=== PATIENT | female | born 1975 | race Caucasian/White ===

== ENCOUNTER → 2017-03-18 | Outpatient (CLI) | payer OTHER ==
[2017-03-18 13:08] LABS: HEMATOCRIT 37.9 % (37-47); MEAN CORPUSCULAR HEMOGLOBIN 31.3 pg (25-34); MEAN CORPUSCULAR HGB CONC 33.2 g/dl (32-36); MEAN PLATELET VOLUME 9.6 fL (7.4-10.4); PLATELET COUNT 198 K/uL (130-400); RED BLOOD COUNT 4.03 M/uL (4.2-5.4); WHITE BLOOD COUNT 8.17 K/uL (4.8-10.8)
[2017-03-18 13:19] LABS: URINE APPEARANCE CLEAR (CLEAR); URINE BILIRUBIN NEG (NEG); URINE COLOR YELLOW; URINE EPITHELIAL CELL AUTO >30 /lpf (0-5); URINE NITRITE NEG (NEG); URINE SPECIFIC GRAVITY 1.007 (1.000-1.030); UROBILINOGEN NEG (NEG)
[2017-03-18 13:20] LABS: MANUAL MICROSCOPIC REQUIRED? NO; REVIEW REQ? YES
[2017-03-18 13:45] LABS: URINE PROTIEN/CREAT RATIO 0.1 (0-0.2); URINE TOTAL PROTEIN 6.6 mg/dl (0-11.9)
[2017-03-18 13:48] LABS: BLOOD UREA NITROGEN 9 mg/dl (7-18); BUN/CREATININE RATIO 4.5 (10-20); CALCIUM 9.4 mg/dl (8.5-10.1); CARBON DIOXIDE 26 mmol/L (21-32); CHLORIDE 104 mmol/L (98-107); GLUCOSE 96 mg/dl (70-99); POTASSIUM 3.7 mmol/L (3.5-5.1); SODIUM 138 mmol/L (136-145)
[2017-03-18 13:49] LABS: PHOSPHORUS 3.4 mg/dl (2.5-4.9)
== END | disposition home or self-care (01) ==
LOC: C.LAB1850 12:14
PROVIDERS: ATTEND Internal Medicine Nephrology
DX: N18.3 Chronic kidney disease, stage 3 (moderate) (principal)

== ENCOUNTER → 2017-03-31 | Outpatient (CLI) | payer OTHER ==
[2017-03-31 11:14] LABS: ESTIMATED AVERAGE GLUCOSE 117 mg/dl; HA1C FLAG Normal (Normal)
[2017-03-31 12:12] LABS: CHOLESTEROL/HDL RATIO 10.1
== END | disposition home or self-care (01) ==
LOC: C.LAB1850 10:11
PROVIDERS: ATTEND Physician Assistant
DX: E11.9 Type 2 diabetes mellitus without complications (principal); E03.9 Hypothyroidism, unspecified; E78.5 Hyperlipidemia, unspecified

== ENCOUNTER 2023-08-05 23:12 | Observation (INO) ==
[2023-08-05] MEDS ORDERED: NICOTINE 14 MG/24 HR PATCH TD STA (23:22)
--- NOTE | 2023-08-05 23:22 | Emergency Department Note ---
History of Present Illness General Chief complaint: Overdose (Intentional) Stated complaint: OVERDOSE Time Seen by Provider: 08/05/23 23:15 History of Present Illness This 48-year-old female took 9 tablets of her Klonopin 0.5 mg as she went to go to sleep. Apparently she states her boyfriend took her trazodone. Patient states she was not trying to hurt herself. Patient denies chest pain, dyspnea, abdominal pain, drug use or alcohol use. She does smoke. No suicide or homicide ideations. No delusions. No hallucinations. She has been hospitalized in the past for behavior health concerns. She has a therapist and her family doctor prescribes her behavioral medications. No other concerns per patient. Home Medications Medication Instructions Recorded Confirmed Type acetaminophen [Tylenol] PO 07/27/22 07/27/22 History atorvastatin PO 07/27/22 07/27/22 History brexpiprazole [Rexulti] PO 07/27/22 07/27/22 History buspirone PO 07/27/22 07/27/22 History clonazepam PO 07/27/22 07/27/22 History duloxetine [Cymbalta] PO 07/27/22 07/27/22 History esomeprazole magnesium [Nexium] PO 07/27/22 07/27/22 History famotidine [Pepcid] PO 07/27/22 07/27/22 History fenofibrate PO 07/27/22 07/27/22 History fluticasone propion-salmeterol inhalation 07/27/22 07/27/22 History [Advair Diskus] gabapentin PO 07/27/22 07/27/22 History hydrocodone-acetaminophen PO 07/27/22 07/27/22 History ibuprofen PO 07/27/22 07/27/22 History insulin aspart U-100 [Novolog subcut 07/27/22 07/27/22 History U-100 Insulin aspart] insulin glargine [Lantus Solostar subcut 07/27/22 07/27/22 History U-100 Insulin] insulin glargine [Lantus U-100 subcut 07/27/22 07/27/22 History Insulin] levothyroxine PO 07/27/22 07/27/22 History mecobalamin (vitamin B12) [B12 PO 07/27/22 07/27/22 History Active] metformin PO 07/27/22 07/27/22 History montelukast [Singulair] PO 07/27/22 07/27/22 History ondansetron HCl [Zofran] PO 07/27/22 07/27/22 History polyethylene glycol 3350 [Miralax] PO 07/27/22 07/27/22 History semaglutide [Ozempic] subcut 07/27/22 07/27/22 History trazodone PO 07/27/22 07/27/22 History vibegron 75 mg tablet (Gemtesa) 75 mg PO DAILY #90 tabs 01/19/23 Rx diaper,brief,adult,disposable #72 ea 04/18/23 04/18/23 Rx (Breezers Adult Brief) Allergies Allergy/AdvReac Type Severity Reaction Status Date / Time niacin AdvReac Severe FACE Verified 08/05/23 23:45 [From Niaspan FLUSHES Extended-Release] AND "HOT" FEELING Past Med/Surg History Medical History Ectopic Kidney stone Surgical History H/O tubal ligation History of hysterectomy Family History Mother Diabetes Grandmother (Maternal) Breast cancer Myocardial infarction Denies family history of Ovarian cancer Prostate cancer Colorectal cancer Social History Smoking Status: Current every day smoker Tobacco Type: Cigarettes packs per day: 1.5; Hx Alcohol Use: No Preferred Language: Romansh marital status: / Feels Safe at Home: Yes Review of Systems A total of 10 systems reviewed and were otherwise negative Physical Exam Vital Signs Vital Signs - 24 hr 08/05/23 23:19 08/05/23 23:36 08/05/23 23:36 Temperature 36.6 C Temperature Source Oral Pulse Rate 75 Pulse Rate [Finger] 69 Respiratory Rate 16 20 Respiratory Effort / Characteristics Non-Labored Spontaneous Respiratory Depth Normal Blood Pressure 114/75 Blood Pressure [Right Arm] 114/75 Blood Pressure Mean 88 Blood Pressure Mean [Right Arm] 88 Blood Pressure Position [Right Arm] Sitting Pulse Oximetry 91 93 88 L Oxygen Delivery Method Room Air Nasal Cannula Room Air Nasal Cannula Oxygen Flow Rate 2 0 Sepsis Recent Fever Within 48 Hours No Sepsis New/Unexplained Change in Mental Status No Sepsis Action Taken by Nursing No Action Required Oxygen Flow Rate - Titration 2 Pulse Oximetry Post Tiitration 93 VITALS: Vitals are noted on the nurse's note and reviewed by myself. Vital signs stable. GENERAL: White female cooperative responding to questions easily and following commands, in no acute distress, nondiaphoretic, well-developed well-nourished. SKIN: Capillary reflex less than 2 seconds. HEENT: Normocephalic. PERRLA. EOMI. Nares patent. Mucous membranes moist. Neck is supple without nuchal rigidity. HEART: Regular rate and rhythm LUNGS: Clear to auscultation bilaterally without wheezes, rales or rhonchi. No retractions or accessory muscle use. ABDOMEN: Positive bowel sounds x 4. Normal tympanic percussion. Soft, nontender, without masses or organomegaly. Milton sign negative. No guarding or rebound tenderness. MUSCULOSKELETAL: No gross musculoskeletal defects. NEURO: Patient was alert and oriented to person place and time. Normal sensation to light and sharp touch. No focal neurological deficits. Course Administered Medications Magnesium Sulfate/Dextrose (Magnesium Sulfate / D5w) 1 gm in 100 mls @ 100 mls/hr IV Q1H CANDICE Stop: 08/06/23 02:10 Last Admin: 08/06/23 00:24 Dose: 100 mls/hr Documented By: MARI Discontinued Medications Sodium Chloride (Nss) 1,000 mls @ 999 mls/hr IV .Q1H1M CANDICE Stop: 08/06/23 00:30 Last Admin: 08/05/23 23:51 Dose: 999 mls/hr Documented By: FREDDY Nicotine (Nicotine 14 Mg/24 Hr Patch) 14 mg TD NOW STA Stop: 08/05/23 23:23 Last Admin: 08/06/23 00:25 Dose: 14 mg Documented By: MARI Potassium Chloride (Potassium Chloride 20 Meq/15 Ml Udc) 40 meq PO NOW STA Stop: 08/06/23 00:12 Last Admin: 08/06/23 00:23 Dose: 40 meq Documented By: MARI Critical Care Time Critical Care Time: Yes Total Critical Care Time: 35 I have personally spent 35 minutes of critical care time in the direct management of this patient. This includes bedside care, interpretation of diagnostic studies, and testing, discussion with consultants, patient, and family members, and other required patient management activities. This 35 minutes is in excess of all separately billable procedures. Medical Decision Making Medical Records Attestation: I reviewed the patient's medical records. Home Medications Current Medication List: was personally reviewed by me Laboratory Data Attestation: I reviewed the patient's lab results. 08/05/23 23:20 08/05/23 23:20 Lab Results 08/05/23 Range/Units 23:20 WBC 9.61 (4.8-10.8) K/ul RBC 4.37 (4.20-5.40) M/uL Hgb 13.3 (12.0-16.0) g/dl Hct 39.4 (37.0-47.0) % MCV 90.2 (80.0-100.0) fL MCH 30.4 (25.0-34.0) pg MCHC 33.8 (32.0-36.0) g/dL RDW Std Deviation 47.9 H (36.4-46.3) fL RDW Coeff of [place] 14.4 (11.5-14.5) % Plt Count 266 (130-400) K/uL MPV 10.1 (9.4-12.4) fL Immature Gran % (Auto) 0.4 % Neut % (Auto) 47.6 % Lymph % (Auto) 42.5 % Leslie % (Auto) 7.6 % Eos % (Auto) 0.9 % Baso % (Auto) 1.0 % Neut # (Auto) 4.57 (1.40-6.50) K/uL Lymph # (Auto) 4.08 H (1.20-3.40) K/uL Leslie # (Auto) 0.73 H (0.11-0.59) K/uL Eos # (Auto) 0.09 (0.00-0.50) K/uL Baso # (Auto) 0.10 (0.00-0.20) K/uL Immature Gran # (Auto) 0.04 (0.01-0.20) K/uL PT 10.7 (9.0-12.0) Seconds INR 1.0 (0.9-1.1) Sodium 139 (136-145) mmol/L Potassium 3.4 L (3.5-5.1) mmol/L Chloride 106 (98-107) mmol/L Carbon Dioxide 25 (21-32) mmol/L Anion Gap 8 (3-11) BUN 22 (6-23) mg/dl Creatinine 1.16 (0.6-1.2) mg/dl Est Cr Clr Drug Dosing 66.8 ml/min Est GFR ( Amer) 64.5 ml/min Est GFR (Non-Af Amer) 55.6 ml/min BUN/Creatinine Ratio 19.0 (10-20) Glucose 152 H (70-99(Fasting)) mg/dl Calcium 9.5 (8.6-10.3) mg/dl Magnesium 1.3 L (1.7-2.4) mg/dl Total Bilirubin 0.5 (0.2-1.0) mg/dl AST 14 (13-39) U/L ALT 19 (7-52) U/L Alkaline Phosphatase 50 (34-104) U/L Total Creatine Kinase 52 (26-192) U/L Troponin I High Sens 2.9 (0-14) pg/ml Total Protein 6.7 (6.0-8.3) gm/dl Albumin 4.4 (3.4-5.0) gm/dl Globulin 2.3 L (2.5-4.0) gm/dl Albumin/Globulin Ratio 1.9 (0.9-2) TSH 3.240 (0.300-4.500) uIu/ml HCG, Qual Negative (Negative) Salicylates < 3.0 L (3.0-30) mg/dl Acetaminophen < 3 L (10-30) ug/ml Ethyl Alcohol mg/dL < 10.0 (<10.0) mg/dl SARS-CoV-2 (PCR) NEGATIVE (Negative) Influenza Type A (PCR) Negative (Neg) Influenza Type B (PCR) Negative (Neg) RSV (RT-PCR) Negative (Neg) Imaging Data Attestation: I personally reviewed and interpreted this imaging study as follows: MDM Narrative Prior records/ancillary studies reviewed. Triage Nursing notes reviewed. Additional history obtained from EMS. The patient's history was concerning for altered mental status and probable overdose. Differential diagnosis: Etiologies such as toxicologic, infection, hypoglycemia, electrolyte abnormalities, cardiac sources, intracerebral event, neurologic, as well as others were entertained. Physical examination: The patient had normal sensorium. No trauma noted. ER treatment provided: IV NSS 1 L bolus magnesium and potassium ordered for replacement An order was placed for continuous cardiac monitoring. The monitor shows a rate of 60-100 with a sinus rhythm per my interpretation. On reassessment the patient was stable and improving. Diagnostic interpretation by me: ECG: ordered for overdose The electrocardiogram was negative for pathologic change. There was no QRS widening or interval prolongation. EKG: Normal sinus, normal intervals, poor baseline, no QRS widening, no acute ST-T wave changes. Rate 74. Impression normal sinus rhythm poor baseline independently interpreted by myself The labs Independently Interpreted by myself revealed no worrisome leukocytosis, low magnesium. Negative alcohol Hypokalemia and this was replaced orally Imaging studies: Chest x-ray with no acute consolidation, pneumothorax or free air per my independent interpretation Consultation: A consultation was placed with Poison Control. The recommendations were for Observation for at least 6 hours and patient to be symptomatic for up to 39 hours A consultation was placed with the Patient be admitted to the medical service. Hospitalist. The case was discussed and diagnostics were reviewed. The patient was evaluated in the ER for further treatment. Apparently the patient had a 302 placed On her by crisis. Patient was not forthcoming about this. Suicide precautions were implemented. Patient be medically admitted and then once cleared will be evaluated by behavioral health. This appears to be consistent with an overdose with electrolyte abnormalities. Poison control was consulted and recommends observation. Medicine was consulted and the case discussed and once the patient is medically cleared will be evaluated by behavioral health. Suicide precautions were implemented. No worrisome leukocytosis. Normal EKG. Stable labs. Patient is agreeable treatment plan of admission. By the evaluation outlined above emergent etiologies such as infection, hypoglycemia, cardiac sources, intracerebral event, neurologic,as well as others were deemed relatively unlikely. The pt informed about the findings as listed above. All questions were answered and pleased with the treatment. The chart was completed utilizing [employer] voice recognition software. Grammatical errors, random word insertions, pronoun errors, and incomplete sentences are an occassional consequence of this system due to software limitations, ambient noise, and hardware issues. Any formal questions or concerns about the content, text, or information contained within the body of this dictation should be directly addressed to the physician retail store assistant for clarification. Impression & Plan Accidental overdose, Hypomagnesemia, Hypokalemia Discharge Plan Visit Data Chief Complaint: Overdose (Intentional) Stated Complaint: OVERDOSE ED Provider: Keyonna Bobby ED Midlevel Provider: Tiffani Conteh Discharge Problem: Accidental overdose, Hypomagnesemia, Hypokalemia Patient Disposition: Admitted As Inpatient Condition: Good Forms Stand Alone Forms: My [facility], Suicide Prevention Resources Prescriptions Prescriptions: No Action Gemtesa 75 mg tablet 75 mg PO DAILY Qty: 90 1RF (DME) Breezers Adult Brief Misc See Rx Instructions .Route Qty: 72 0RF Rx Instructions: As directed insulin glargine [Lantus U-100 Insulin] subcut duloxetine [Cymbalta] PO fenofibrate PO metformin PO esomeprazole magnesium [Nexium] PO levothyroxine PO mecobalamin (vitamin B12) [B12 Active] PO trazodone PO famotidine [Pepcid] PO buspirone PO atorvastatin PO gabapentin PO montelukast [Singulair] PO brexpiprazole [Rexulti] PO clonazepam PO ondansetron HCl [Zofran] PO ibuprofen PO hydrocodone-acetaminophen PO fluticasone propion-salmeterol [Advair Diskus] inhalation semaglutide [Ozempic] subcut polyethylene glycol 3350 [Miralax] PO acetaminophen [Tylenol] PO insulin glargine [Lantus Solostar U-100 Insulin] subcut insulin aspart U-100 [Novolog U-100 Insulin aspart] subcut Referrals Referrals: Martin Daly M.D. [Primary Care Provider] - Discharge Problem: Accidental overdose Qualifiers: Encounter type: initial encounter Qualified Code(s): T50.901A - Poisoning by unspecified drugs, medicaments and biological substances, accidental (unintentional), initial encounter
[2023-08-05] MEDS ORDERED: SODIUM CHLORIDE 0.9% 1,000 ML IV SCH (23:30)
[2023-08-05 23:55] LABS: Eosinophils # (auto) 0.09 K/uL (0.00-0.50); Eosinophils % (auto) 0.9 %; Hematocrit (blood only) 39.4 % (37.0-47.0); Hemoglobin 13.3 g/dl (12.0-16.0); Immature Granulocytes # (auto) 0.04 K/uL (0.01-0.20); Immature Granulocytes % (auto) 0.4 %; Lymphocytes # (auto) 4.08 K/uL (1.20-3.40); Lymphocytes % (auto) 42.5 %; Mean Corpuscular Hemoglobin 30.4 pg (25.0-34.0); Mean Corpuscular Hgb Conc 33.8 g/dL (32.0-36.0); Mean Corpuscular Volume 90.2 fL (80.0-100.0); Mean Platelet Volume 10.1 fL (9.4-12.4); Monocytes # (auto) 0.73 K/uL (0.11-0.59); Monocytes % (auto) 7.6 %; Neutrophils # (auto) 4.57 K/uL (1.40-6.50); Neutrophils % (auto) 47.6 %; Platelet Count 266 K/uL (130-400); RDW Coefficient of Variation 14.4 % (11.5-14.5); RDW Standard Deviation 47.9 fL (36.4-46.3); Red Blood Count 4.37 M/uL (4.20-5.40); White Blood Count 9.61 K/ul (4.8-10.8)
[2023-08-06 00:07] LABS: Albumin Globulin Ratio 1.9 (0.9-2); Albumin Level 4.4 gm/dl (3.4-5.0); Bilirubin,Total 0.5 mg/dl (0.2-1.0); Calcium 9.5 mg/dl (8.6-10.3); Creatinine Clr Calc Pharmacy 66.8 ml/min; Est GFR (African American) 64.5 ml/min; Est GFR (Non-African American) 55.6 ml/min; Globulin 2.3 gm/dl (2.5-4.0); Magnesium 1.3 mg/dl (1.7-2.4); Potassium 3.4 mmol/L (3.5-5.1); Total Protein 6.7 gm/dl (6.0-8.3)
[2023-08-06 00:10] LABS: Pregnancy Test, Serum Negative (Negative)
[2023-08-06] MEDS ORDERED: POTASSIUM CHLORIDE 20 MEQ/15 ML UDC PO STA (00:11)
[2023-08-06 00:14] LABS: Acetaminophen < 3 ug/ml (10-30); Salicylate < 3.0 mg/dl (3.0-30); Troponin I High Sensitivity 2.9 pg/ml (0-14)
[2023-08-06 00:19] LABS: Prothrombin Time 10.7 Seconds (9.0-12.0)
[2023-08-06 00:24] LABS: Thyroid Stimulating Hormone 3.24 uIu/ml (0.300-4.500)
[2023-08-06] MEDS: MAGNESIUM SULFATE / D5W 1 GM/100 ML BAG IV SCH ×2 (00:24→01:11)
[2023-08-06 00:28] LABS: Influenza A virus by PCR Negative (Neg); Influenza B virus by PCR Negative (Neg); RSV by PCR Negative (Neg); SARS CoV2 RNA(COVID-19) Ceph NEGATIVE (Negative)
[2023-08-06] MEDS ORDERED: LACTATED RINGER'S 500 ML IV ONE (00:56)
--- NOTE | 2023-08-06 01:17 | Emergency Department Note ---
ED Visit Note I was consulted by the Advanced Practice Provider. I saw the patient personally and performed a substantive portion of the visit. This includes aspects of the HPI, MDM, diagnostic interpretations, and disposition/plan. .
[2023-08-06 01:49] LABS: Appearance Urine Clear (Clear); Bacteria Urine Automated 3+ (Negative); Bilirubin Urine Negative (Negative); Blood Urine Trace (Negative); Color Urine Yellow; Epithelial Cell Urine Auto 0-5 /lpf (0-5); Glucose Urine UA Negative (Negative); Ketones Urine Negative (Negative); Leukocyte Esterase Urine 3+ (Negative); Nitrite Urine Positive (Negative); Protein Urine Negative (Negative); RBC Urine Automated 0-4 /hpf (0-4); Specific Gravity Urine 1.007 (1.000-1.030); Urobilinogen Urine Negative (Negative); WBC Urine Automated >30 /hpf (0-5)
--- NOTE | 2023-08-06 01:58 | History & Physical Report ---
Date of Service August 06, 2023 Assessment & Plan (1) Accidental overdose: Plan: Patient is a 48-year-old female with past medical history of diabetes, nocturnal enuresis, and insomnia who presents to the hospital for concern of overdose. -Admit to telemetry, telemetry indication being overdose with susceptibility to arrhythmia -No indication for flumazenil at this time -Placed on telemetry and give supportive care with IV fluids and continue to monitor -EKG in the morning. Serial labs -Unfortunately, patient unable to confirm or deny any of the medications that she is on, some of which could induce withdrawal if not taken appropriately including duloxetine, buspirone, and hydrocodone -Home medications on hold until can be confirmed that the patient is taking them (2) Hypomagnesemia: Plan: - Magnesium 1.3 on admission, x2 bags of IV, recheck in AM (3) Hypokalemia: Plan: - Potassium of 3.4 on admission, supplement as needed (4) Diabetes: Plan: - Patient appears to be on metformin, Ozempic, and insulin in the outpatient setting. Unable to confirm -Placed on basal bolus insulin with sliding scale based on weight (5) High cholesterol: Plan: - Continue statin when medication is able to be confirmed Plan Disposition: Admit to telemetry for monitoring up for overdose Diet: DM 2 DVT prophylaxis: Heparin CODE STATUS: Assumed full code given lethargy and overdose History of Present Illness Chief Complaint: Overdose Primary Care Provider: Martin Daly Patient is a 48-year-old female with past medical history of diabetes, nocturnal enuresis, and insomnia who presents to the hospital for concern of overdose. Patient is quite lethargic at the time of my interview and very little meaningful HPI was gathered at that time. HPI is received almost entirely from ED EMILY. It seems patient took 9 tablets of 0.5 mg Klonopin to help induce sleep. It seems her boyfriend had taken her trazodone for some reason, so she used Klonopin to help induce sleep. Unable to gather any other meaningful HPI at this time. ED course: Patient evaluated by provider. Labs are significant for mildly low potassium at 3.4, magnesium 1.3, and urinalysis significant for urine bacteria, white blood cells, and leukocyte esterase/nitrites. Poison control was contacted and recommended observation for the next "6-39 hours". Hospital service was consulted for admission and observation during overdose. Allergies Allergy/AdvReac Type Severity Reaction Status Date / Time niacin AdvReac Severe FACE Verified 08/05/23 23:45 [From Niaspan FLUSHES Extended-Release] AND "HOT" FEELING Home Medications Medication Instructions Recorded Confirmed Type acetaminophen [Tylenol] PO 07/27/22 07/27/22 History atorvastatin PO 07/27/22 07/27/22 History brexpiprazole [Rexulti] PO 07/27/22 07/27/22 History buspirone PO 07/27/22 07/27/22 History clonazepam PO 07/27/22 07/27/22 History duloxetine [Cymbalta] PO 07/27/22 07/27/22 History esomeprazole magnesium [Nexium] PO 07/27/22 07/27/22 History famotidine [Pepcid] PO 07/27/22 07/27/22 History fenofibrate PO 07/27/22 07/27/22 History fluticasone propion-salmeterol inhalation 07/27/22 07/27/22 History [Advair Diskus] gabapentin PO 07/27/22 07/27/22 History hydrocodone-acetaminophen PO 07/27/22 07/27/22 History ibuprofen PO 07/27/22 07/27/22 History insulin aspart U-100 [Novolog subcut 07/27/22 07/27/22 History U-100 Insulin aspart] insulin glargine [Lantus Solostar subcut 07/27/22 07/27/22 History U-100 Insulin] insulin glargine [Lantus U-100 subcut 07/27/22 07/27/22 History Insulin] levothyroxine PO 07/27/22 07/27/22 History mecobalamin (vitamin B12) [B12 PO 07/27/22 07/27/22 History Active] metformin PO 07/27/22 07/27/22 History montelukast [Singulair] PO 07/27/22 07/27/22 History ondansetron HCl [Zofran] PO 07/27/22 07/27/22 History polyethylene glycol 3350 [Miralax] PO 07/27/22 07/27/22 History semaglutide [Ozempic] subcut 07/27/22 07/27/22 History trazodone PO 07/27/22 07/27/22 History vibegron 75 mg tablet (Gemtesa) 75 mg PO DAILY #90 tabs 01/19/23 Rx diaper,brief,adult,disposable #72 ea 04/18/23 04/18/23 Rx (Breezers Adult Brief) Past Med/Surg History Medical History Ectopic Kidney stone Surgical History H/O tubal ligation History of hysterectomy Family History Mother Diabetes Grandmother (Maternal) Breast cancer Myocardial infarction Denies family history of Ovarian cancer Prostate cancer Colorectal cancer Social History Smoking Status: Current every day smoker Tobacco Type: Cigarettes packs per day: 1.5; Hx Alcohol Use: No Hx Substance Use: Yes Preferred Language: Nepali Oracle Architect Required: No Beliefs That Will Affect Care: None marital status: / Current Living Situation: Alone Current Living Situation Comment: Son is at basic training for Feels Safe at Home: Yes Assistive Devices: Glasses Review of Systems Review of Systems: Unobtainable due to reduced consciousness Physical Exam Constitutional: well developed, well nourished and + lethargic Eyes: + anicteric sclerae Neck: normal visual inspection Respiratory: normal respiratory effort, lungs clear to auscultation Cardiovascular: RRR, no murmur, no edema Gastrointestinal (Abdomen): normal bowel sounds, soft, nontender, no hepatosplenomegaly Musculoskeletal: Head/Neck/Chest: normocephalic and head atraumatic Skin: no rashes, warm and dry Neurologic: moves all extremities Results & Data Results & Data Vital Signs (Past 12 Hours) Vital Signs Temp Pulse Pulse Resp BP BP Pulse Ox 08/06/23 01:41 70 19 92 08/06/23 01:41 116/65 08/06/23 01:30 80/56 L 08/06/23 01:30 68 19 94 08/06/23 01:27 68 14 94 08/06/23 01:27 79/48 L 08/06/23 01:15 66 14 94 08/06/23 01:15 85/48 L 08/06/23 01:14 81/52 L 08/06/23 01:13 81/52 L 08/06/23 01:13 66 15 94 08/06/23 01:04 64 13 95 08/06/23 01:04 88/56 L 08/06/23 01:04 88/56 L 08/06/23 01:00 80/55 L 08/06/23 01:00 64 13 95 08/06/23 01:00 80/55 L 08/06/23 00:53 64 14 94 08/06/23 00:53 90/53 L 08/06/23 00:53 90/53 L 08/06/23 00:47 66 14 96 08/06/23 00:47 91/60 L 08/06/23 00:46 71 12 96 08/06/23 00:45 80/52 L 08/06/23 00:45 63 15 08/06/23 00:30 62 19 97 08/06/23 00:28 65 14 98 08/06/23 00:00 68 14 94 08/05/23 23:45 69 14 92 08/05/23 23:36 88 L 08/05/23 23:36 69 20 114/75 93 08/05/23 23:30 72 14 90 08/05/23 23:21 89 L 08/05/23 23:20 72 08/05/23 23:19 36.6 C 75 16 114/75 91 O2 Del Method O2 Flow Rate 08/06/23 01:41 08/06/23 01:41 08/06/23 01:30 08/06/23 01:30 08/06/23 01:27 08/06/23 01:27 08/06/23 01:15 08/06/23 01:15 08/06/23 01:14 08/06/23 01:13 08/06/23 01:13 08/06/23 01:04 08/06/23 01:04 08/06/23 01:04 08/06/23 01:00 08/06/23 01:00 08/06/23 01:00 08/06/23 00:53 08/06/23 00:53 08/06/23 00:53 08/06/23 00:47 08/06/23 00:47 08/06/23 00:46 08/06/23 00:45 08/06/23 00:45 08/06/23 00:30 08/06/23 00:28 08/06/23 00:00 08/05/23 23:45 08/05/23 23:36 Room Air, Nasal Cannula 0 08/05/23 23:36 Nasal Cannula 2 08/05/23 23:30 08/05/23 23:21 08/05/23 23:20 08/05/23 23:19 Room Air Supervising Physician Co-Signing Physician Notes Attending addendum: I have physically seen this patient, have supervised the medical residents activities, and agree with the H&P unless as otherwise noted. Assessment and Plan: Accidental clonazepam overdose- The patient will be admitted to telemetry for serial cardiac enzymes, serial EKG's, cardiac rhythm monitoring IV fluids as noted History and physical and HPI limited due to patient's lethargic state and decreased responsiveness One-on-one observation Consult psychiatry Hypomagnesemia- Magnesium 1.3 on admission Ordered for 2 g magnesium sulfate IV from the ED, recheck laboratories in a.m. Hypokalemia- Potassium 3.4 on admission, replace as noted, recheck laboratories in a.m. Diabetes mellitus- Holding metformin, Ozempic Placed on basal bolus insulin with sliding scale as noted and check hemoglobin A1c in a.m. Remaining orders and notations as noted (1) Accidental overdose Encounter type: initial encounter Qualified Code(s): T50.901A - Poisoning by unspecified drugs, medicaments and biological substances, accidental (unintentional), initial encounter
[2023-08-06 02:05] LABS: Amphetamines+Metham, Urine Neg (Neg); Barbiturates, Urine Neg (Neg); Benzodiazepine, Urine Neg (Neg); Cocaine, Urine Neg (Neg); MDMA (Ecstacy), Urine Neg (Neg); Marijuana, Urine Neg (Neg); Methadone, Urine Neg (Neg); Opiate, Urine Neg (Neg); Phencyclidine, Urine Neg (Neg)
[2023-08-06] MEDS ORDERED: GLUCAGON FOR INJ 1 MG VIAL SQ PRN (02:11)
[2023-08-06] MEDS ORDERED: GLUCOSE 10 TAB/TUBE PO PRN (02:11)
[2023-08-06] MEDS ORDERED: LACTATED RINGER'S 1,000 ML IV SCH (02:11)
[2023-08-06] MEDS ORDERED: CARBOHYDRATES FOR HYPOGLYCEMIA PO PRN (02:11)
[2023-08-06] MEDS ORDERED: DEXTROSE 50% 50 ML SYRINGE IV PRN (02:11)
[2023-08-06] MEDS ORDERED: GLUCOSE 40% GEL 15 GM TUBE PO PRN (02:11)
[2023-08-06 07:10] LABS: Hematocrit (blood only) 36.3 % (37.0-47.0); Hemoglobin 12.1 g/dl (12.0-16.0); Mean Corpuscular Hemoglobin 30.3 pg (25.0-34.0); Mean Corpuscular Hgb Conc 33.3 g/dL (32.0-36.0); Mean Corpuscular Volume 90.8 fL (80.0-100.0); Platelet Count 242 K/uL (130-400); RDW Coefficient of Variation 14.6 % (11.5-14.5); RDW Standard Deviation 48.4 fL (36.4-46.3)
[2023-08-06 07:25] LABS: Albumin Globulin Ratio 2.1 (0.9-2); Albumin Level 3.9 gm/dl (3.4-5.0); BUN Creatinine Ratio 19.2 (10-20); Bilirubin,Total 0.5 mg/dl (0.2-1.0); Calcium 8.7 mg/dl (8.6-10.3); Creatinine Clr Calc Pharmacy 78.1 ml/min; Est GFR (African American) 78.1 ml/min; Est GFR (Non-African American) 67.4 ml/min; Globulin 1.9 gm/dl (2.5-4.0); Potassium 4.2 mmol/L (3.5-5.1); Total Protein 5.8 gm/dl (6.0-8.3)
--- NOTE | 2023-08-06 07:52 | XRay Report ---
XR chest 1V portable HISTORY: Overdose. COMPARISON: None. FINDINGS: The cardiac silhouette is mildly enlarged. A few bibasilar linear densities favor subsegmen manju atelectasis. No focal lung consolidations to suggest a pneumonia. No evidence for pulmonary edema . No acute fractures identified. No pleural effusions. No pneumothorax. IMPRESSION: Mild cardiomegaly. Otherwise, no acute process within the chest. ACT 112: Negative or not required by law. Electronically signed by: Sonu Lemons M.D. 08/06/2023 7:51 AM
--- NOTE | 2023-08-06 08:19 | Electrocardiogram Report ---
Test Reason : Blood Pressure : / mmHG Vent. Rate : 074 BPM Atrial Rate : 074 BPM P-R Int : 182 ms QRS Dur : 076 ms QT Int : 422 ms P-R-T Axes : 033 -13 -12 degrees QTc Int : 468 ms Normal sinus rhythm Diffuse Minor Nonspecific T wave abnormality Abnormal ECG No previous ECGs available Confirmed by Caleb Washington ([id number]) on 08/06/2023 8:19:04 AM Referred By: REFERRED SELF Confirmed By:Caleb Washington
[2023-08-06 08:21] LABS: Estimated Average Glucose 151 mg/dl; Hemoglobin A1C 6.9 % (4.5-5.6)
[2023-08-06] MEDS ORDERED: cefTRIAXone SODIUM 2,000 MG in DEXTROSE 5 % MINI-B 50 ML IV SCH (08:30)
[2023-08-06] MEDS ORDERED: SODIUM CHLORIDE 0.9% 500 ML IV SCH (08:30)
[2023-08-06] MEDS: INSULIN ASPART PER UNIT CHARGE SC SCH ×2 (08:53→13:08)
[2023-08-06] MEDS ORDERED: NICOTINE 14 MG/24 HR PATCH TD SCH (09:00)
[2023-08-06] MEDS ORDERED: LANTUS PER UNIT CHARGE SQ SCH (09:00)
[2023-08-06] MEDS ORDERED: HEPARIN SOD 5,000 UNIT/0.5 ML VIAL SQ SCH (09:00)
--- NOTE | 2023-08-06 12:35 | Psychiatric Consultation ---
Date of Consultation August 06, 2023 Impression / Recommendations Impression 48 y/o F with a history of depressive and anxiety symptoms (but whose assigned diagnoses are currently unclear) who took 9 0.5 mg clonazepam to get to sleep because she had been keeping her trazodone at her boyfriend's apartment and he wouldn't let her in to get in following an argument. She has consistently denied any suicidal intent, saying she was just trying to get to sleep. Pt says she is prescribed 0.5 mg QID and that her prescriber told her that this will be replaced with 1 mg twice a day (which certainly makes more sense). Pt does not think of 4.5 mg clonazepam as a dangerously high dose and, objectively, it shouldn't be; the 3 mg tablet is almost always used twice a day (totaling 33% more than she took), and some patients are prescribed 4.5 mg or more twice a day (albeit not very commonly). As already noted, pt is taking duloxetine and gabapentin, and stopping those abruptly could be problematic. I've never seen problems attributable to abrupt cessation of buspirone (and most patients who take it simply stop it) or brexpiprazole. In my opinion, pt does not meet criteria for involuntary emergency psychiatric admission and can safely be discharged home for outpatient follow-up with her current team. Overall I spent a total of 98 minutes on the floor for this consultation assessment including review of chart records, review of test results, direct evaluation of the patient [id number], counseling the patient, medication education with the patient, risk assessment, discussion with the psychiatric liaison nurse and with the hospitalist, and documentation in the electronic he alth record. (1) Anxiety and depression: (2) Accidental overdose: Encounter type: initial encounter Qualified Code(s): T50.901A - Poisoning by unspecified drugs, medicaments and biological substances, accidental (unintentional), initial encounter Plan The patients 302 warrant has been dispositioned as on exam, the patient is not in need of emergency treatment because she is not currently suicidal nor was she suicidal at the time of the medication overingestion. She does not longer require 1-on-1 for psychiatric hold; the treating hospitalist was notified to make a determination of ongoing need for an aide for safety. * I recommend no change in the patient's prescribed outpatient psychiatric medication regimen. She does not require any prescriptions since she has "bubble packs" of all of her medications at home (including, now, the trazodone). * She should follow up with her outpatient commercial green building architect as already scheduled in about 3 weeks. Psych History Identifying Data VIOLET TURK is a 48-year-old F with a history of depressoin and anxiety, admitted on 08/05/2023 for taking more clonazepam than prescribed. Consult is by the hospitalist service for "psych clearance before d/c". Chief Complaint "I had a hard day and couldn't sleep. I wasn't trying to hurt myself". History of Present Illness As part of a thorough review of the available medical records, I have read and confirmed the following note by the ED physician: "This 48-year-old female took 9 tablets of her Klonopin 0.5 mg as she went to go to sleep. Apparently she states her boyfriend took her trazodone. Patient states she was not trying to hurt herself. Patient denies chest pain, dyspnea, abdominal pain, drug use or alcohol use. She does smoke. No suicide or homicide ideations. No delusions. No hallucinations. She has been hospitalized in the past for behavior health concerns. She has a therapist and her family doctor prescribes her behavioral medications." the following note by the hospitalist: "Patient is a 48-year-old female with past medical history of diabetes, nocturnal enuresis, and insomnia who presents to the hospital for concern of overdose. Patient is quite lethargic at the time of my interview and very little meaningful HPI was gathered at that time. HPI is received almost entirely from ED EMILY. It seems patient took 9 tablets of 0.5 mg Klonopin to help induce sleep. It seems her boyfriend had taken her trazodone for some reason, so she used Klonopin to help induce sleep. Unable to gather any other meaningful HPI at this time." the following note by the ED psychiatric comp field case manager: "Call from Alisia BARBA/Officer Karla who stated he faxed a Box B petitioning statement which reads: " Miguel Lazo called the crisis line to speak with a staff member due to her boyfriend breaking up with her again. This date she admittedly took 9 Klonapin .5mg causing her to fall asleep while on the phone with crisis. This led to PD being called. Violet admitted to me she took the medication to "go to sleep" and "forget what happened today." Violet admitted to taking extra Klonopin multiple times lately. She is missing a total of 29 pills out of her prescription issues on 07/19/23 with #120 pills to take 1 tablet 4 times a day."" and the following note by the psychiatric liaison nurse: "Met with pt for initial psych consult for s/p OD on Klonopin 0.5mg x9 tablets. Pt stated she got into an argument with her boyfriend. She describes a tumultuous relationship in which they break up frequently. She stated he told her to leave and he locked her out of his apartment and then blocked her over phone. They live in the same apartment complex. She stated he had her Trazodone in his apartment and she "wanted to go to sleep", therefore took extra of her Klonopin. She denies this was a suicide attempt and is denying any current SI. She does admit to taking extra Klonopin at times for increasing anxiety. She states, "My PCP said she is increasing it to 1mg." She denies her boyfriend using her medications. She has a hx of inpt psychiatric treatment at [facility] in 2021 after her . Also inpt at [facility] in 2001 as well as [place] "years ago". She states she overdosed in the past as suicide attempt after her . Denies access to guns/weapons. Denies substance use. Pt currently on probation for theft. She currently denies outpatient psychiatrist stating, "I don't want one." Her PCP, Yumiko Nelson prescribes her psychiatric meds. Pt did sign YUMIKO for PCP. 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 PHQ9=3+0. She is able to contract for safety and feels safe going home. She is not interested in psychiatric treatment at this time." Review of the medical record reveals no previous or outside psychiatric records in the EHR here. Pt. carries diagnosis of depression and anxiety and is followed at [facility]. Review of pertinent labs reveals they are noncontributory except for hypokalemia and hypomagnesemia. A urine toxicology screen was negative for all tested substrates. BAL was <10 mg/dL. screen was negative. Pt reports that she has a chronically precious relationship with her boyfriend, who lives in the same apartment building as she. She usually spends the night at his place so keeps her trazodone there. They had an argument yesterday and he wouldn't let her in to get her things, so without access to the trazodone she took clonazepam 4.5 mg (9 x 0.5 mg). Because she was distressed about the breakup she called the crisis line and when asked if she'd taken anything reported the clonazepam, which resulted in a welfare check by police who brought her to the ED. At no point does she seem to have reported suicidal thoughts to anyone, and she's consistently denied them here. None of those who have seen her here has expressed much concern that this was a suicide attempt or that she's suicidal. Pt denies any particular recent psychiatric symptoms and thinks her medications "are working about like they're supposed to". The clonazepam had been ordered 0.5 mg QID but she says the plan had been to change it to 1 mg BID. Apart from that denies any recent medication changes. Acknowledges a suicidal overdose about a year ago after her , but says "this is nothing like that". Although we have what seems likely to be an accurate list of her medications, pt is not able to provide doses for most of them, which come packaged in blister packs. Escorted by police, pt was able to retrieve her things from her boyfriend, so again has access to trazodone. Past Psychiatric History Previous Psych History: "depression and anxiety" Outpatient Services: Therapist [address] at [facility], has peer counselor. PCP prescribes medications. [facility] of , [facility], [facility] "years ago" Do You Have Access To A Gun?: No History of Previous Suicide Attempt: Yes (overdose 2021 after of ) Allergies Allergy/AdvReac Type Severity Reaction Status Date / Time niacin AdvReac Severe FACE Verified 08/05/23 23:45 [From Niaspan FLUSHES Extended-Release] AND "HOT" FEELING Home Medications Medication Instructions Recorded Confirmed Type acetaminophen [Tylenol] PO 07/27/22 07/27/22 History atorvastatin PO 07/27/22 07/27/22 History brexpiprazole [Rexulti] PO 07/27/22 07/27/22 History buspirone PO 07/27/22 07/27/22 History clonazepam PO 07/27/22 07/27/22 History duloxetine [Cymbalta] PO 07/27/22 07/27/22 History esomeprazole magnesium [Nexium] PO 07/27/22 07/27/22 History famotidine [Pepcid] PO 07/27/22 07/27/22 History fenofibrate PO 07/27/22 07/27/22 History fluticasone propion-salmeterol inhalation 07/27/22 07/27/22 History [Advair Diskus] gabapentin PO 07/27/22 07/27/22 History hydrocodone-acetaminophen PO 07/27/22 07/27/22 History ibuprofen PO 07/27/22 07/27/22 History insulin aspart U-100 [Novolog subcut 07/27/22 07/27/22 History U-100 Insulin aspart] insulin glargine [Lantus Solostar subcut 07/27/22 07/27/22 History U-100 Insulin] insulin glargine [Lantus U-100 subcut 07/27/22 07/27/22 History Insulin] levothyroxine PO 07/27/22 07/27/22 History mecobalamin (vitamin B12) [B12 PO 07/27/22 07/27/22 History Active] metformin PO 07/27/22 07/27/22 History montelukast [Singulair] PO 07/27/22 07/27/22 History ondansetron HCl [Zofran] PO 07/27/22 07/27/22 History polyethylene glycol 3350 [Miralax] PO 07/27/22 07/27/22 History semaglutide [Ozempic] subcut 07/27/22 07/27/22 History trazodone PO 07/27/22 07/27/22 History vibegron 75 mg tablet (Gemtesa) 75 mg PO DAILY #90 tabs 01/19/23 Rx diaper,brief,adult,disposable #72 ea 04/18/23 04/18/23 Rx (Breezers Adult Brief) Patient History Medical History Ectopic Kidney stone Surgical History H/O tubal ligation History of hysterectomy Family History Mother Diabetes Grandmother (Maternal) Breast cancer Myocardial infarction Denies family history of Ovarian cancer Prostate cancer Colorectal cancer Social History Smoking Status: Current every day smoker Tobacco Type: Cigarettes packs per day: 1.5; Hx Alcohol Use: No Hx Substance Use: Yes Preferred Language: Croatian Time Broker Required: No Beliefs That Will Affect Care: None marital status: / Current Living Situation: Alone Current Living Situation Comment: Son is at basic training for [employer] Feels Safe at Home: Yes Assistive Devices: Glasses Physical Exam Psychiatric: Orientation: alert, oriented to person, oriented to place, oriented to time and cooperative Apperance: appropriately dressed and + disheveled Eye Contact: good eye contact Motor Behavior: no abnormal motor movements Speech: normal rate/rhythm/volume of speech Affect: + tearful affect (when discussing losses) and mood congruent with affect Mood: + dysphoric mood Thought Process: + concrete thought process Thought C ontent: reality based without delusions Suicidal Thoughts: denies suicidal thoughts, denies suicidal plan and denies suicidal intent Homicidal Thoughts: denies homicidal thoughts Hallucinations: no auditory hallucinations and no visual hallucinations Cognition: recent memory grossly intact, remote memory grossly intact, attention grossly intact and language grossly intact Estimated Intelligence: + below average estimated intelligence Insight: + fair insight Judgment: + fair judgement Vital Signs (Past 24 Hours): Last Vital Signs Temp 36.6 C 08/05/23 23:19 Pulse 95 H 08/06/23 06:00 Resp 16 08/06/23 06:00 BP 93/70 L 08/06/23 06:00 Pulse Ox 95 08/06/23 06:00 O2 Del Method Nasal Cannula 08/06/23 06:00 O2 Flow Rate 2 08/06/23 06:00 Review of Systems Psychiatric: as per Subjective / HPI Results & Data (PSY) Medications Administered Heparin Sodium (Porcine) (Heparin Sod 5,000 Unit/0.5 Ml Vial) 5,000 units SQ Q12 [facility] Stop: 09/05/23 08:59 Last Admin: 08/06/23 10:51 Dose: 5,000 units Documented By: BERNIE Ceftriaxone Sodium 2,000 mg/ (Dextrose) 50 mls @ 100 mls/hr IV Q24H [facility]; Protocol Stop: 08/11/23 08:29 Last Infusion: 08/06/23 11:30 Dose: Infused Documented By: Admin: 08/06/23 10:52 Dose: 100 mls/hr Documented By: BERNIE Sodium Chloride (Nss) 500 mls @ 100 mls/hr IV .Q5H [facility] Stop: 09/05/23 08:29 Last Admin: 08/06/23 08:38 Dose: 100 mls/hr Documented By: BRENIE Insulin Aspart (Insulin Aspart Per Unit Charge) 0 units SC ACHS [facility] Stop: 09/05/23 07:29 Last Admin: 08/06/23 08:53 Dose: 6 units Documented By: BERNIE Co-signed By: CATALINA Insulin Glargine (Lantus Per Unit Charge) 10 units SQ BID [facility] Stop: 09/05/23 08:59 Last Admin: 08/06/23 08:54 Dose: 10 units Documented By: BERNIE Co-signed By: CATALINA Miscellaneous (Remove Nicoderm Patch) 1 each N/A DAILY@0859 [facility] Stop: 09/05/23 08:58 Last Admin: 08/06/23 10:52 Dose: 1 each Documented By: BERNIE Nicotine (Nicotine 14 Mg/24 Hr Patch) 14 mg TD DAILY [facility] Stop: 09/05/23 08:59 Last Admin: 08/06/23 10:53 Dose: 14 mg Documented By: BERNIE Coding Level of Care Code 25876 [facility] Intl Hosp Care Lvl 3 Diagnoses Anxiety and depression F41.9; F32.A Accidental overdose T50.901A Encounter type: initial encounter Time Spent (min) 98
--- NOTE | 2023-08-06 13:11 | Discharge Summary ---
Date of Service August 06, 2023 Admission HPI Per Admitting Provider Patient is a 48-year-old female with past medical history of diabetes, nocturnal enuresis, and insomnia who presents to the hospital for concern of overdose. Patient is quite lethargic at the time of my interview and very little meaningful HPI was gathered at that time. HPI is received almost entirely from ED EMILY. It seems patient took 9 tablets of 0.5 mg Klonopin to help induce sleep. It seems her boyfriend had taken her trazodone for some reason, so she used Klonopin to help induce sleep. Unable to gather any other meaningful HPI at this time. ED course: Patient evaluated by provider. Labs are significant for mildly low potassium at 3.4, magnesium 1.3, and urinalysis significant for urine bacteria, white blood cells, and leukocyte esterase/nitrites. Poison control was contacted and recommended observation for the next "6-39 hours". Hospital service was consulted for admission and observation during overdose. Principal Diagnosis accidental drug overdose Discharge Exam The patient is awake, alert and oriented 3, well developed and well nourished, normocephalic and atraumatic, lying in bed and in no acute distress. HEENT--PERRL, EOMI, mucous membranes and oropharynx mildly dry Neck--supple. No JVD. No bruits. Thyroid normal, trachea midline, no adenopathy. Heart--normal S1 and S2. No murmurs, rubs or gallops. Lungs--clear bilaterally, no respiratory distress, no accessory muscle use. Abdomen--normal bowel sounds and soft. Mild epigastric and left sided abdominal pain Extremities--no cyanosis or clubbing. No edema. Dermatologic--normal skin turgor, normal color, no abnormal lymph nodes, no rash. Neurologic--cranial nerves II through XII grossly intact. Rheumatologic--normal range of motion. Psychiatric--normal affect. Discharge Data Allergies Allergy/AdvReac Type Severity Reaction Status Date / Time niacin AdvReac Severe FACE Verified 08/05/23 23:45 [From Niaspan FLUSHES Extended-Release] AND "HOT" FEELING Consultations 08/06/23 00:12 ED Decision to Admit Stat 08/06/23 06:01 Consult Behavioral Health Liaison Routine 08/06/23 10:57 Consult Psychiatry Routine Hospital Course (1) Accidental overdose: Patient was brought to the hospital after accidentally ingesting an overdose of her Klonapin, she took 9 tablet She claimed she did not have acces to her usual home Trazodone because she had a quarrel with her boyfriend and her Trazodone was at his place She was drowsy on admission, but was more awake and alert when i saw her in the morning Electrolytes were wnl, ekg did not show any changes She was also evaluated by Psychiatry, who deemed her safe for discharge we will ask her to hold Klonapin for at least 24 hrs to let the drug wash out of her system d/c her to follow up with regular pcp Plan d/c home Total Time Total Time Spent Total Time Spent (In Minutes): 35 Discharge Plan Discharge Items Patient Disposition: Home - Self-Care Reason For Visit: OVERDOSE Discharge Diagnosis: drug overdose, not suicidal Condition on Discharge: Good Activity: Resume your previous activity Non-emergency contact: Primary Care Provider Call non-emergency contact if: you have any medication questions Follow-up/Referrals: Martin Daly M.D. [Primary Care Provider] - Diet: Regular Addtl Attending Provider Instructions: please follow up with your regular PCP. Please hold of on resuming your home klonapin for at least 24 hrs Pending Studies at Discharge: No Stand-Alone Forms: My [employer], Smoking Cessation Medications and DC Order Prescriptions: Continued Gemtesa 75 mg tablet 75 mg PO DAILY Qty: 90 1RF (DME) [facility]ers Adult Brief Misc See Rx Instructions .Route Qty: 72 0RF Rx Instructions: As directed insulin glargine [Lantus U-100 Insulin] subcut duloxetine [Cymbalta] PO fenofibrate PO metformin PO esomeprazole magnesium [Nexium] PO levothyroxine PO mecobalamin (vitamin B12) [B12 Active] PO trazodone PO famotidine [Pepcid] PO buspirone PO atorvastatin PO gabapentin PO montelukast [Singulair] PO brexpiprazole [Rexulti] PO ondansetron HCl [Zofran] PO ibuprofen PO hydrocodone-acetaminophen PO fluticasone propion-salmeterol [Advair Diskus] inhalation semaglutide [Ozempic] subcut polyethylene glycol 3350 [Miralax] PO acetaminophen [Tylenol] PO insulin glargine [Lantus Solostar U-100 Insulin] subcut insulin aspart U-100 [Novolog U-100 Insulin aspart] subcut Held clonazepam PO Hold Instructions: Resume on 08/08/23. Discharge Orders: Discharge Order (Routine); Ordered 08/06/23 Ordered By: Law Estrada Admission Data Admit Date/Time: 08/06/23 00:52 Attending Provider: Law Estrada Admit Provider: Júnior Kamara Primary Care Provider: Martin Daly Other Providers: James Villalobos; Harry Barrera Coding Level of Care Code 87171 INP/OBS DISCH >30 MIN Diagnoses Accidental overdose T50.901A Encounter type: initial encounter Time Spent (min) 35
--- NOTE | 2023-08-07 05:53 | Billing Data ---
Date of Service August 07, 2023 Coding Level of Care Code 16208 INT INP/OBS CARE
--- NOTE | 2023-08-07 08:01 | Electrocardiogram Report ---
Test Reason : Blood Pressure : / mmHG Vent. Rate : 060 BPM Atrial Rate : 060 BPM P-R Int : 160 ms QRS Dur : 072 ms QT Int : 422 ms P-R-T Axes : 037 008 004 degrees QTc Int : 422 ms Normal sinus rhythm Low voltage QRS Diffuse Minor Nonspecific T wave abnormality Borderline ECG When compared with ECG of 05-AUG-2023 23:21, No significant change Confirmed by Caleb Washington ([id number]) on 08/07/2023 8:00:50 AM Referred By: REFERRED SELF Confirmed By:Caleb Washington
== END 2023-08-06 14:01 | disposition home or self-care (01) ==
LOC: ED 23:12 → EDINP 08-06 00:52 → SUATTDRO 08-06 00:52 → INTOOBSV 08-06 00:52 → EDINP 08-06 02:11